=== PATIENT | female | born 1990 ===

== ENCOUNTER 2025-06-14 06:03 | Day surgery (SDC) | payer BC, SELFPAY ==
[2025-06-14] VITALS (7 sets, daily range): BP systolic 97–126; BP diastolic 41–78; BMI 24.6
[2025-06-14] MEDS: VIBRAMYCIN 270 MG IV (10:44)
--- NOTE | 2025-06-14 11:35 | W.IMMPOSTOP ---
Surgical Immed Post Op Note
-
Primary Surgeon: Sarah Valerio DO
Assisting Surgeon: none
Pre-op Diagnosis: Missed ab 11.6 wks by LMP 6w by US
Post-op Diagnosis: same
Procedure Performed: Dilation and evacuation with suction
Anesthesia Type: general LMA Dr. Mg
Specimen / Cultures: 1. products of conception
Estimated Blood Loss: 10ml
Complications: none
Operative Findings: Uterus sounded to 8cm, POC visualized upon suction.
Stable to recovery.
== END 2025-06-14 12:45 | disposition home or self-care (01) ==
LOC: SDS 06:03
PROVIDERS: ATTENDING PHYSICIAN Obstetrics & Gynecology
DX: O02.1 Missed abortion (principal); D25.9 Leiomyoma of uterus, unspecified; Z3A.12 12 weeks gestation of pregnancy
CPT/HCPCS: 59820; 88305